=== PATIENT | female | born 1930 | race Caucasian/White ===

== ENCOUNTER 2019-10-27 09:01 | Observation (INO) ==
[~2019-10-27 09:01] MED LIST: Buffered Lidocaine 1% SYRIN 1 ml INTRADERM ONE; Famotidine IV 10 MG/ML 2 ml VIAL (20 mg) IV ONE; Lactated Ringers 1000 ml BAG 1,000 ML IV SCH
[2019-10-27] MEDS ORDERED: Famotidine IV 10 MG/ML 2 ml VIAL (20 mg) ONE (09:19)
[2019-10-27] MEDS ORDERED: ceFAZolin 2 GM PREMIX 2 GM/50 ML BAG ONE (09:19)
[2019-10-27] MEDS ORDERED: Midazolam 2 mg/2 ml VIAL 1 mg/ml 2 ml VIAL (2 mg) ONE ×2 (10:31→11:24)
[2019-10-27] MEDS ORDERED: Bupivacaine 0.5% SDV PF 30ML VIAL ONE (10:39)
[2019-10-27] MEDS ORDERED: Lidocaine 2% PF 5 ML VIAL ONE (11:23)
[2019-10-27] MEDS ORDERED: Propofol 10 MG/ML 20 ML BTL ONE (11:23)
[2019-10-27] MEDS ORDERED: fentaNYL 100 mcg/2 ml 50 MCG/ML VIAL ONE (11:24)
[2019-10-27] MEDS ORDERED: Propofol 10 mg/ml 100 ML BTL 100 ML ONE (11:46)
[2019-10-27] MEDS ORDERED: fentaNYL 100 mcg/2 ml 50 MCG/ML VIAL IV PRN (13:39)
[2019-10-27] MEDS ORDERED: Naloxone 0.4 mg VIAL 0.4 mg/ml 1 ml VIAL IV PRN ×2 (13:39)
[2019-10-27] MEDS ORDERED: Ondansetron ODT 4 mg TAB 4 MG TAB PO PRN (14:17)
[2019-10-27] MEDS ORDERED: Ondansetron 4 mg VIAL 2 MG/ML 2 ml VIAL IV PRN (14:17)
[2019-10-27] MEDS ORDERED: diPHENhydraMINE IV 50 MG/ML 1 ml VIAL (BENADRYL) IV PRN (14:17)
[2019-10-27] MEDS ORDERED: Lactulose 30 ml UDC PO PRN (14:17)
[2019-10-27] MEDS ORDERED: diPHENhydraMINE 25 mg TAB PO PRN (14:17)
[2019-10-27] MEDS ORDERED: oxyCODONE/Acetamin 5/325 mg TAB PO PRN ×2 (14:17)
[2019-10-27] MEDS ORDERED: Magnesium Hydroxide LIQ 30 ML UDC PO PRN (14:17)
[2019-10-27] MEDS ORDERED: Lactated Ringers 1000 ml BAG 1,000 ML IV SCH (15:00)
[2019-10-27] MEDS: ceFAZolin 1 GM ADVAN 1 GM in NS 0.9% 50 ML 50 ML IVPB SCH (22:26)
[2019-10-27] MEDS: Magnesium Hydroxide LIQ 30 ML UDC PO SCH (22:26)
[2019-10-28] MEDS: ceFAZolin 1 GM ADVAN 1 GM in NS 0.9% 50 ML 50 ML IVPB SCH ×2 (05:27→12:21)
[2019-10-28 05:51] LABS: Hematocrit 30 % (35-47); Hemoglobin 10.1 g/dL (12.0-16.0); Mean Platelet Volume 8.5 fL (7.4-10.4); Platelet Count 164 10^3/uL (150-450)
[2019-10-28 06:07] LABS: BUN/Creatinine Ratio 20.3 (8-20); Calcium 8.2 mg/dL (8.6-10.3); EGFR African American 83.1 (>60); EGFR Non-African American 68.7 (>60)
[2019-10-28 08:34] VITALS: BP 120/48
[2019-10-28] MEDS: Magnesium Hydroxide LIQ 30 ML UDC PO SCH (08:55)
[2019-10-28] MEDS ORDERED: Vitamin THERAPEUTIC TAB PO SCH (09:00)
[2019-10-28] MEDS ORDERED: Scopolamine PATCH Remove NOTE PATCH OFF ONE (10:24)
[2019-10-30] MEDS ORDERED: Scopolamine PATCH Remove NOTE PATCH OFF ONE (08:00)
== END 2019-10-28 13:10 | disposition home or self-care (01) ==
LOC: OR 09:01 → INTOOBSV 14:18 → SSU 14:18
PROVIDERS: ADMIT Orthopaedic Surgery Adult Reconstructive Orthopaedic Surgery; ATTEND Orthopaedic Surgery Adult Reconstructive Orthopaedic Surgery